=== PATIENT | male | born 1985 | race Caucasian/White ===

== ENCOUNTER 2022-01-09 19:21 | Emergency (ER) | payer OTHER ==
[2022-01-09] MEDS ORDERED: SODIUM CHLORIDE 0.9% 1,000 ML IV STA ×2 (19:28)
--- NOTE | 2022-01-09 19:29 | ED Physician Documentation ---
History of Present Illness - Stated complaint Stated Complaint: FATIGUE, EXHAUSTION - History obtained from History obtained from: Patient, EMS - Additonal information Additional information: 36-year-old gentleman with type 2 diabetes was helping a friend move things today outdoors. He had breakfast but did not eat or drink after that and after a few hours of heavy work he started to feel weak and dizzy and quite sweaty. Not associate with chest pain or trouble breathing. He was tachycardic for EMS but with unremarkable blood sugar. He has not been febrile/herperthermic. he did develop some leg cramps with all this. Review of Systems Constitutional: reports: Sweats. denies: Fever, Chills Respiratory: denies: Dyspnea, Cough GI: denies: Abdominal Pain, Nausea PD PAST MEDICAL HISTORY - Allergies Allergies/Adverse Reactions: Allergies Allergy/AdvReac Type Severity Reaction Status Date / Time No Known Drug Allergies Allergy Verified 01/09/22 19:27 PD ED PE NORMAL - Vitals Vital signs reviewed: Yes - General General: Alert and oriented X 3, Other (Sweaty) - HEENT HEENT: PERRL, EOMI - Neck Neck: Supple, no meningeal sign, No bony TTP - Cardiac Cardiac: No murmur, Other (Mild resting tachycardia) - Respiratory Respiratory: No respiratory distress, Clear bilaterally - Abdomen Abdomen: Non tender - Back Back: No CVA TTP, No spinal TTP - Derm Derm: Normal color, Warm and dry - Extremities Extremities: No edema, No calf tenderness / cord - Neuro Neuro: Alert and oriented X 3, Normal speech Results - Vitals Vitals: Vital Signs - 24 hr 01/09/22 19:27 Temperature 37.2 C Heart Rate 125 H Respiratory 18 Rate Blood Pressure 153/80 H O2 Saturation 99 Oxygen O2 Source Room air - Labs Labs: Laboratory Tests 01/09/22 19:33 Sodium 140 Potassium 4.1 Chloride 105 Carbon Dioxide 25 Anion Gap 10.0 BUN 16 Creatinine 0.8 Estimated GFR (MDRD) 109 Glucose 109 H Calcium 9.4 Total Bilirubin 0.8 AST 22 ALT 26 Alkaline Phosphatase 38 L Total Creatine Kinase 136 Total Protein 7.1 Albumin 4.2 Globulin 2.9 Albumin/Globulin Ratio 1.4 Lipase 28 PD MEDICAL DECISION MAKING - ED course ED course: 36-year-old very large gentleman was working hard outside today and not eating and drinking and started to feel weak And dizzy. He was tachycardic. Not hyperthermic. No evidence of rhabdomyolysis or renal dysfunction or electrolyte abnormality. Feeling much better after 2 L of IV fluid. Departure - Departure Disposition: 01 Home, Self Care Clinical Impression: Heat exhaustion Qualifiers: Encounter type: initial encounter Qualified Code(s): T67.5XXA - Heat exhaustion, unspecified, initial encounter Condition: Good Record reviewed to determine appropriate education?: Yes Instructions: ED Exhaustion Heat Comments: Take it easy and drink plenty of water. No heavy work tomorrow. Your labs are normal, no evidence of muscle breakdown or significant dehydration. Return for new or worsening symptoms. Follow-up with your doctor, next available appointment.
[2022-01-09 19:52] LABS: ALBUMIN 4.2 g/dL (3.2-5.5); ALBUMIN/GLOBULIN RATIO 1.4 (1.0-2.2); BILIRUBIN,TOTAL 0.8 mg/dL (0.2-1.0); CALCIUM 9.4 mg/dL (8.5-10.3); CREATININE 0.8 mg/dL (0.6-1.2); POTASSIUM 4.1 mmol/L (3.5-5.0); TOTAL PROTEIN 7.1 g/dL (6.7-8.2)
[2022-01-09 20:31] VITALS: BP 144/77
== END 2022-01-09 20:40 | disposition home or self-care (01) ==
LOC: EDBD → ED 19:21
DX: T67.5XXA Heat exhaustion, unspecified, initial encounter (principal)
CPT/HCPCS: 36415; 80053; 82550; 83690; 99282; 99283